=== PATIENT | female | born 1950 | race Caucasian/White ===

== ENCOUNTER 2024-04-12 11:42 | Emergency (ER) | payer OTHER ==
[2024-04-12 11:48] VITALS: TEMP 98.3; BMI 26.2
[2024-04-12 14:01] LABS: EOS % 3.2 % (0-4.5); HEMATOCRIT 45.1 % (32.4-45.2); HEMOGLOBIN 14.1 GM/dL (10.7-15.3); LYMPH % 22.9 % (8-40); MCH 28.9 pg (25.7-33.7); MCHC 31.3 g/dl (32.0-36.0); MEAN CELL VOLUME 92.5 fl (80-96); MEAN PLT VOLUME 9.1 fl (7.5-11.1); NEUT % 62.9 % (42.8-82.8); PLATELET COUNT 316 10^3/uL (134-434); RBC 4.88 M/mm3 (3.60-5.2); RDW 16.8 % (11.6-15.6); WHITE BLOOD COUNT 5.6 K/mm3 (4.0-10.0)
[2024-04-12 14:02] VITALS: BP 114/94; PULSE 67; RESP 19
[2024-04-12 14:06] LABS: INR 0.98 (0.83-1.09); PROTHROMBIN TIME (PATIENT) 11.3 SEC (9.7-13.0)
[2024-04-12 14:09] LABS: ACTIVATED PTT 38.3 SECONDS (25.2-36.5)
[2024-04-12 14:20] LABS: POTASSIUM 4.8 mmol/L (3.5-5.1)
[2024-04-12 14:24] LABS: CALCIUM 8.5 mg/dL (8.5-10.1)
[2024-04-12 14:25] LABS: BLOOD UREA NITROGEN 22.2 mg/dL (7-18)
[2024-04-12 14:27] LABS: CREATININE 0.7 mg/dL (0.55-1.3)
[2024-04-12 14:29] LABS: BILIRUBIN,TOTAL 0.3 mg/dL (0.2-1)
== END 2024-04-12 15:42 | disposition home or self-care (01) ==
LOC: JER 11:42
DX: R55 Syncope and collapse (principal); I95.9 Hypotension, unspecified; R00.1 Bradycardia, unspecified
CPT/HCPCS: 36415; 71045-TC-FY; 80053; 84484; 85025; 85610; 85730; 93005; 93010; 99285-25